=== PATIENT | male | born 1965 | race Caucasian/White ===

== ENCOUNTER 2024-04-12 14:53 | Day surgery (SDC) | payer BC ==
[~2024-04-12 14:53] MED LIST: Fluorouracil 100 MG, Enoxaparin 25 MG, EPINEPHrine 0.3 MG in Ophthalmic Irrigation Solu... IRR SCH
[2024-04-12] MEDS ORDERED: Cyclopentolate 1% Opth Drop 2 ML BOT ONE (15:52)
[2024-04-12] MEDS ORDERED: PHENYLephrine 2.5% Ophth Soln 15 ml Bottle ONE (15:52)
[2024-04-12] MEDS ORDERED: fentaNYL 50 mcg/mL 1 mL Vial ONE ×2 (18:12→18:41)
[2024-04-12] MEDS ORDERED: PROPOFOL 20 ML ONE (18:13)
[2024-04-12] MEDS ORDERED: Triamcinolone 40 MG/ML VIAL ONE (18:32)
[2024-04-12] MEDS ORDERED: Maxitrol 0.1% Opth Oint 3.5 GM TUBE ONE (18:32)
[2024-04-12] MEDS ORDERED: CEFAZOLIN 1 GM VIAL ONE (18:32)
[2024-04-12] MEDS ORDERED: Enoxaparin 30 MG (0.3 mL) SYRINGE ONE (18:32)
[2024-04-12] MEDS ORDERED: Bupivacaine 0.75% 10 ML VIAL ONE (18:32)
[2024-04-12] MEDS ORDERED: Lidocaine 1% PF 5 ML VIAL ONE (18:32)
[2024-04-12] MEDS ORDERED: Lidocaine 4% PF 5 ML AMP ONE (18:32)
[2024-04-12] MEDS ORDERED: Ondansetron PF 4 MG/2 ML Vial ONE (19:03)
[2024-04-12] MEDS ORDERED: Acetaminophen 325 MG TAB ONE (19:47)
== END 2024-04-12 20:05 | disposition home or self-care (01) ==
LOC: SDC 14:53
PROVIDERS: ATTEND Ophthalmology Retina Specialist
PROC: 08T43ZZ Resection of Right Vitreous, Percutaneous Approach (ICD-10-PCS; principal; 2024-04-12)
DX: H33.011 Retinal detachment with single break, right eye (principal); I10 Essential (primary) hypertension; E78.5 Hyperlipidemia, unspecified; F41.9 Anxiety disorder, unspecified; F32.A Depression, unspecified; Z90.49 Acquired absence of other specified parts of digestive tract; Z90.89 Acquired absence of other organs
CPT/HCPCS: 67025; J0171; J0690; J1650; J2405; J2704; J3010; J3301; J3490; J9190